=== PATIENT | male | born 1940 | race Two or more races ===

== ENCOUNTER 2018-11-30 07:51 | Day surgery (SDC) | payer OTHER ==
[2018-11-30] MEDS ORDERED: MIRALAX17 GM PO (12:36)
[2018-11-30] MEDS ORDERED: TRAMADOL HCL50 MG PO (12:36)
[2018-11-30] MEDS ORDERED: TYLENOL EXTRA500 MG PO (12:36)
== END 2018-11-30 17:35 | disposition home or self-care (01) ==
LOC: CIR.AMB 07:51
DX: K40.90 Unilateral inguinal hernia, without obstruction or gangrene, not specified as recurrent (principal)